=== PATIENT | female | born 1965 ===

== ENCOUNTER 2017-08-14 09:16 | Day surgery (SDC) | payer BC, OTHER ==
[2017-08-14 10:03] VITALS: BMI 37.0
[2017-08-14] MEDS ORDERED: methylPREDNISolone Depo 80 mg/ml Inj ONE (11:31)
[2017-08-14] MEDS ORDERED: Propofol 10 mg/ml Inj (20 ML) ONE (11:36)
[2017-08-14] MEDS ORDERED: Midazolam 2 MG/2 ML VIAL ONE (11:36)
[2017-08-14] MEDS ORDERED: Lactated Ringer's 1,000 ML IV ONE (11:40)
[2017-08-14] MEDS ORDERED: Lidocaine 1% Inj (20ml) IJ ONE (11:41)
[2017-08-14] MEDS ORDERED: Bupivacaine HCl 0.25% PF (30 ml) Inj IJ ONE (11:41)
[2017-08-14] MEDS ORDERED: methylPREDNISolone Depo 80 mg/ml Inj IM ONE (11:41)
[2017-08-14 12:23] VITALS: RESP 18
[2017-08-14 13:21] VITALS: O2SAT 96
[2017-08-14 15:32] VITALS: BP 100/65; PULSE 75; TEMP 98
--- NOTE | 2017-08-17 08:26 | OP ---
PROCEDURE DATE: 08/14/2017 PREOPERATIVE DIAGNOSIS: Left knee osteoarthritis. POSTOPERATIVE DIAGNOSIS: Left knee osteoarthritis. PROCEDURE: Left knee genicular nerve block x 3. ANESTHESIOLOGIST: Dr. Sutton. SURGEON: Corby Perea MD ANESTHESIA TYPE: Monitored anesthesia care. COMPLICATIONS: None. SPECIMEN: None. DESCRIPTION OF PROCEDURE: As follows. After we had a discussion of the procedure with the patient including its risks, benefits, alternative, outcome data, possibility of no effect or increased pain, the patient consented to the procedure. She denied any recent infections, bleeding tendencies or being on anticoagulants. A decision was then made to proceed to the OR. The patient was placed on the fluoroscopy table in a supine position with two pillows underneath her left knee. The knee was prepped and draped in the usual sterile fashion, and a sterile technique was adhered to during the entire procedure. The genicular nerve branch to be targeted are the superolateral and superomedial and also the inferior medial branches. These three nerves are located at the connecting periosteal region between the femoral shaft and the bilateral femoral epicondyles as well as the tibial shaft and the medial tibial epicondyle. The three above targeted areas were first marked. The knee was then prepped and draped in the usual sterile fashion, and a sterile technique was adhered to during the entire procedure. The skin overlying the three above targeted areas were then infiltrated with 1% lidocaine using 25-gauge needle. Subsequently, a 22-gauge 3.5-inch spinal needle was then incrementally advanced under fluoroscopic guidance until bony contact with all three targeted areas. After satisfactory positioning of all three needles, was obtained to ensure that the tips of the needle are located at the mid point of the bony shaft. After appropriate placement of three needles, approximately 4 mL of a 0.25% Marcaine and Depo-Medrol mixture was injected. The needle was then removed and the patient's knee was cleaned and dried, and bandages were applied. The patient was then transferred to the recovery area in good condition without any signs of [employer] toxicity or any neurological deficit. She will be following in our office in approximately two to four weeks. Corby Perea MD
--- NOTE | 2017-08-17 15:41 | RAD ---
PROCEDURE: Intraoperative Fluoroscopy. HISTORY: PAIN MANAGEMENT FINDINGS: Fluoroscopic assistance was provided for pain management.. Please refer to the operative report from [facility]ron. Total exam DLP: (mGy) 0.87. Total fluoroscopic time (continuous mode) utilized during the procedure (seconds) 15.8.
== END 2017-08-14 14:00 | disposition home or self-care (01) ==
LOC: H.OPSURG 09:16
PROVIDERS: ATTEND Anesthesiology
DX: M17.12 Unilateral primary osteoarthritis, left knee (principal); I10 Essential (primary) hypertension; M54.9 Dorsalgia, unspecified
CPT/HCPCS: 64450; J1040; J2250; J2704; J3010; J7120